=== PATIENT | female | born 1930 | race Two or more races ===

== ENCOUNTER 2017-05-03 09:07 | Inpatient (IN) | payer MEDICARE, MEDICAID ==
[~2017-05-03] VITALS: Ht 157.5 cm; Wt 75.7 kg
[2017-05-03] MEDS ORDERED: SODIUM CHLORIDE 0.9% 1000ML BAG (SEPSIS BOLUS) IV ONE (10:00)
[2017-05-03] MEDS ORDERED: LEVOFLOXACIN 500MG PREMIX 100 ML IV ONE (10:00)
[2017-05-03] MEDS ORDERED: ALBUTEROL (0.083%) 2.5MG/3ML NEB HHN STA (10:06)
[2017-05-03] MEDS ORDERED: IPRATROPIUM BROMIDE (0.02%) 0.5MG/2.5ML NEB HHN STA (10:06)
[2017-05-03] MEDS ORDERED: AMLODIPINE 5MG TABLET PO ONE (10:15)
[2017-05-03 10:25] LABS: CLARITY URINE CLEAR (CLEAR); COLOR URINE YELLOW (YELLOW); GLUCOSE URINE NEGATIVE (NEGATIVE); KETONES URINE NEGATIVE (NEGATIVE); LEUKOCYTE ESTERASE URINE NEGATIVE (NEGATIVE); NITRITE URINE NEGATIVE (NEGATIVE); OCCULT BLOOD URINE NEGATIVE (NEGATIVE); PH URINE 7.5 (4.5-8.0); PROTEIN URINE NEGATIVE (NEGATIVE); SPECIFIC GRAVITY URINE 1.008 (1.005-1.030); UROBILINOGEN URINE 0.2 E.U./dL (0.2-1.0)
[2017-05-03 10:35] LABS: BASOPHILS % 1.1 % (0.0-2.0); EOSINOPHILS % 0.3 % (0.0-5.0); HEMATOCRIT. 40.8 % (36.0-48.0); HEMOGLOBIN. 13.7 g/dL (12.0-16.0); MEAN CORPUSCULAR VOLUME 92.1 fL (81.0-99.0); MEAN PLATELET VOLUME 8.4 fl (7.4-10.4); NEUTROPHILS % 69.6 % (40.0-76.0); PLATELET 161 x1000/uL (130-400); RED BLOOD CELL COUNT 4.43 mill/uL (4.2-5.4); RED CELL DISTRIBUTION WIDTH 15.2 % (11.6-14.6)
[2017-05-03 10:42] LABS: INR 1.2; PROTHROMBIN TIME 12.2 sec
[2017-05-03 10:53] LABS: CARBON DIOXIDE 31 mEq/L (21-32); CHLORIDE 104 mEq/L (98-107); CREATINE KINASE 32 IU/L (26-192); CREATINE KINASE MB FRACTION 0.6 ng/mL (0.5-3.6); TROPONIN I < 0.02 ng/mL (0.00-0.04)
[2017-05-03 15:41] VITALS: BP 140/75
[2017-05-03 15:45] VITALS: BP 140/75
[2017-05-03] MEDS ORDERED: FURO-152 PO (16:02)
[2017-05-03] MEDS ORDERED: PREG75CA PO (16:02)
[2017-05-03] MEDS ORDERED: PREG50CA PO (16:02)
[2017-05-03] MEDS ORDERED: AMLO5TAB4 PO (16:08)
[2017-05-03] MEDS ORDERED: FERR-63 PO (16:08)
[2017-05-03] MEDS ORDERED: VITAMIN C (16:08)
[2017-05-03] MEDS ORDERED: METO-293 PO (16:08)
[2017-05-03] MEDS ORDERED: MONT10TA24 PO (16:08)
[2017-05-03] MEDS ORDERED: LUTIN (16:15)
[2017-05-03] MEDS ORDERED: CRANBERRY (16:15)
[2017-05-03] MEDS ORDERED: BUDE0.5A3 IH (16:15)
[2017-05-03] MEDS ORDERED: METF500T4 PO (16:15)
[2017-05-03] MEDS ORDERED: PERFOROMIST ×2 (16:15→16:56)
[2017-05-03] MEDS ORDERED: BRIM15DR2 EACHEYE (16:15)
[2017-05-03] MEDS ORDERED: [UNRECOGNIZED DRUG - OTHER] (16:19)
[2017-05-03] MEDS ORDERED: MILK OF MAGNESIA (16:19)
[2017-05-03] MEDS ORDERED: DOCUSATE SODIUM 100MG CAPSULE PO PRN (17:30)
[2017-05-03] MEDS ORDERED: ACETAMINOPHEN 650MG/20.3ML UDC GT PRN (17:30)
[2017-05-03] MEDS ORDERED: MAGNESIUM/ALUMINUM HYDROXIDE/SIMETHICONE 30ML UDC PO PRN (17:30)
[2017-05-03] MEDS ORDERED: IPRATROPIUM/ALBUTEROL 0.5-3(2.5)MG/3ML NEB INH SCH (17:30)
[2017-05-03] MEDS ORDERED: ONDANSETRON HCL 4MG/2ML VIAL IV PRN (17:30)
[2017-05-03] MEDS ORDERED: DIPHENHYDRAMINE 50MG/ML VIAL IV PRN (17:30)
[2017-05-03] MEDS ORDERED: ALBUTEROL (0.083%) 2.5MG/3ML NEB HHN PRN (17:47)
[2017-05-03] MEDS ORDERED: DEXTROSE 50% WATER 50ML SYRINGE IV PRN (18:15)
[2017-05-03] MEDS: METHYLPREDNISOLONE SOD SUCC 40 MG/ML VIAL IV SCH (18:29)
[2017-05-03] MEDS: METFORMIN HCL 500MG TABLET PO SCH (18:29)
[2017-05-03 20:00] VITALS: BP 137/69
[2017-05-03] MEDS: ALBUTEROL (0.083%) 2.5MG/3ML NEB HHN SCH (20:47)
[2017-05-03] MEDS: CEFTRIAXONE 1 G PREMIX 50 ML IV SCH (20:51)
[2017-05-03] MEDS: PREGABALIN 25MG CAPSULE PO SCH (21:05)
[2017-05-03] MEDS: GUAIFENESIN 600MG ER TABLET PO SCH (21:06)
[2017-05-03] MEDS: MONTELUKAST SODIUM 10MG TABLET PO SCH (21:06)
[2017-05-03] MEDS: SODIUM CHLORIDE 0.9% INJ 3ML FLUSH IVF SCH (21:07)
[2017-05-03] MEDS: INSULIN LISPRO 100 UNITS/ML SUBCUT SCH (21:16)
[2017-05-03] MEDS: BLOOD SUGAR DIAGNOSTIC STRIP TEST SCH (21:16)
[2017-05-04] VITALS: BP 111/56
[2017-05-04] MEDS: ALBUTEROL (0.083%) 2.5MG/3ML NEB HHN SCH ×7 (00:29→23:53)
[2017-05-04] MEDS: METHYLPREDNISOLONE SOD SUCC 40 MG/ML VIAL IV SCH ×3 (02:28→18:09)
[2017-05-04 04:00] VITALS: BP 111/56
[2017-05-04] MEDS: SODIUM CHLORIDE 0.9% INJ 3ML FLUSH IVF SCH ×3 (05:59→22:07)
[2017-05-04 06:39] LABS: BASOPHILS % 0.2 % (0.0-2.0); HEMATOCRIT. 37.4 % (36.0-48.0); HEMOGLOBIN. 12.5 g/dL (12.0-16.0); MEAN CORPUSCULAR VOLUME 92.7 fL (81.0-99.0); MEAN PLATELET VOLUME 8.4 fl (7.4-10.4); MONOCYTES % 3.1 % (2.0-8.0); NEUTROPHILS % 87.7 % (40.0-76.0); PLATELET 150 x1000/uL (130-400); RED BLOOD CELL COUNT 4.03 mill/uL (4.2-5.4)
[2017-05-04] MEDS: BLOOD SUGAR DIAGNOSTIC STRIP TEST SCH ×4 (06:49→21:29)
[2017-05-04] MEDS: INSULIN LISPRO 100 UNITS/ML SUBCUT SCH ×4 (06:52→21:27)
[2017-05-04 07:21] LABS: BG CARBOXYHEMOGLOBIN 0.5 % (0.5-1.5); BG DEOXYHEMOGLOBIN 7.7 % (0.0-5.0); BG HCO3 ACT 21.7 mmol/L (22.0-26.0); BG METHEMOGLOBIN 0.2 % (0.0-1.5); BG OXYGEN SATURATION 92.2 % (92.0-98.5); BG OXYHEMOGLOBIN 91.6 % (94.0-97.0); BG PCO2 37.8 mmHg (35.0-45.0); BG PH 7.377 (7.350-7.450); BG PO2 68.7 mmHg (75.0-100.0); BG SAMPLE SITE RIGHT BRACHIAL; BG TOTAL HEMOGLOBIN 13.1 g/dL (12.0-18.0); BG VENT MODE ROOM AIR
[2017-05-04 07:24] LABS: CARBON DIOXIDE 25 mEq/L (21-32); CHLORIDE 102 mEq/L (98-107); HDL CHOLESTEROL 83 mg/dL (40-59); LDL CHOLESTEROL 141 mg/dL (5-100); T4 FREE 1.13 ng/dL (0.76-1.46); TROPONIN I < 0.02 ng/mL (0.00-0.04)
[2017-05-04 07:38] LABS: TOTAL IRON BINDING CAPACITY 281 ug/dL (250-450)
[2017-05-04 08:00] VITALS: BP_SYST 114; BP_SYST 127; BP_DIAS 68; BP_DIAS 69
[2017-05-04] MEDS: DOCUSATE SODIUM 100MG CAPSULE PO SCH (09:00)
[2017-05-04] MEDS: AMLODIPINE 5MG TABLET PO SCH (09:17)
[2017-05-04] MEDS: POTASSIUM BICARB/CIT ACID 25 MEQ TABLET.EFF PO SCH ×2 (09:18→18:09)
[2017-05-04] MEDS: PREGABALIN 25MG CAPSULE PO SCH (09:18)
[2017-05-04] MEDS: GUAIFENESIN 600MG ER TABLET PO SCH ×2 (09:18→21:29)
[2017-05-04] MEDS: FUROSEMIDE 20MG TABLET PO SCH (09:18)
[2017-05-04] MEDS: METFORMIN HCL 500MG TABLET PO SCH ×2 (09:18→18:09)
[2017-05-04] MEDS: FLUTICASONE PROPIONATE 50MCG/SPRAY BOTTLE NS SCH (09:19)
[2017-05-04] MEDS: MAGNESIUM HYDROXIDE 400MG/5ML 30ML UDC PO PRN (11:18)
[2017-05-04 12:00] VITALS: BP 127/69
[2017-05-04] MEDS ORDERED: DEXTROSE 50% WATER 50ML SYRINGE IV PRN (15:00)
[2017-05-04 16:00] VITALS: BP 139/63
[2017-05-04 20:00] VITALS: BP 107/58
[2017-05-04] MEDS: CEFTRIAXONE 1 G PREMIX 50 ML IV SCH (21:26)
[2017-05-04] MEDS: MONTELUKAST SODIUM 10MG TABLET PO SCH (21:28)
[2017-05-04] MEDS: INSULIN DETEMIR UD 100 UNITS/ML SYR SUBCUT SCH (21:28)
[2017-05-04] MEDS: BETAXOLOL 0.5% XX SCH (21:28)
[2017-05-04] MEDS: BRIMONIDINE 0.15% XX SCH (21:28)
[2017-05-04] MEDS: PREGABALIN 75MG CAPSULE PO SCH (21:29)
[2017-05-05] VITALS: BP 98/58
[2017-05-05] MEDS: METHYLPREDNISOLONE SOD SUCC 40 MG/ML VIAL IV SCH ×3 (02:12→18:07)
[2017-05-05 04:00] VITALS: BP 110/57
[2017-05-05] MEDS: ALBUTEROL (0.083%) 2.5MG/3ML NEB HHN SCH ×5 (04:00→21:03)
[2017-05-05] MEDS: BLOOD SUGAR DIAGNOSTIC STRIP TEST SCH ×4 (06:53→21:33)
[2017-05-05] MEDS: SODIUM CHLORIDE 0.9% INJ 3ML FLUSH IVF SCH ×3 (06:53→21:35)
[2017-05-05 06:59] LABS: BASOPHILS % 0.1 % (0.0-2.0); HEMATOCRIT. 35.8 % (36.0-48.0); HEMOGLOBIN. 11.9 g/dL (12.0-16.0); LYMPHOCYTES % 8.4 % (20.0-50.0); MEAN CORPUSCULAR HEMOGLOBIN 30.8 pg (28.0-32.0); MEAN CORPUSCULAR VOLUME 92.5 fL (81.0-99.0); MEAN PLATELET VOLUME 8.8 fl (7.4-10.4); MONOCYTES % 5.6 % (2.0-8.0); NEUTROPHILS % 85.9 % (40.0-76.0); PLATELET 152 x1000/uL (130-400); RED BLOOD CELL COUNT 3.87 mill/uL (4.2-5.4); RED CELL DISTRIBUTION WIDTH 15.1 % (11.6-14.6)
[2017-05-05] MEDS: INSULIN LISPRO 100 UNITS/ML SUBCUT SCH ×4 (07:09→21:44)
[2017-05-05 07:23] LABS: CARBON DIOXIDE 27 mEq/L (21-32); CHLORIDE 103 mEq/L (98-107); PHOSPHORUS 3.9 mg/dL (2.5-4.9)
[2017-05-05 08:00] VITALS: BP 105/52
[2017-05-05] MEDS: METFORMIN HCL 500MG TABLET PO SCH ×2 (08:51→18:08)
[2017-05-05] MEDS: FLUTICASONE PROPIONATE 50MCG/SPRAY BOTTLE NS SCH (08:51)
[2017-05-05] MEDS: FUROSEMIDE 20MG TABLET PO SCH (08:52)
[2017-05-05] MEDS: POTASSIUM BICARB/CIT ACID 25 MEQ TABLET.EFF PO SCH (08:52)
[2017-05-05] MEDS: AMLODIPINE 5MG TABLET PO SCH (08:52)
[2017-05-05] MEDS: GUAIFENESIN 600MG ER TABLET PO SCH ×2 (08:52→21:32)
[2017-05-05] MEDS: BETAXOLOL 0.5% XX SCH ×2 (08:53→21:33)
[2017-05-05] MEDS: BRIMONIDINE 0.15% XX SCH ×2 (08:53→21:34)
[2017-05-05] MEDS: DOCUSATE SODIUM 100MG CAPSULE PO SCH (08:59)
[2017-05-05] MEDS: MAGNESIUM HYDROXIDE 400MG/5ML 30ML UDC PO PRN (09:07)
[2017-05-05] MEDS: PREGABALIN 50 MG CAPSULE PO SCH (09:07)
[2017-05-05] MEDS ORDERED: FUROSEMIDE 40MG/4ML VIAL IVP SCH (10:30)
[2017-05-05 12:00] VITALS: BP 112/59
[2017-05-05 16:00] VITALS: BP 127/67
[2017-05-05 20:00] VITALS: BP 140/74
[2017-05-05] MEDS: MONTELUKAST SODIUM 10MG TABLET PO SCH (21:32)
[2017-05-05] MEDS: CEFTRIAXONE 1 G PREMIX 50 ML IV SCH (21:32)
[2017-05-05] MEDS: PREGABALIN 75MG CAPSULE PO SCH (21:32)
[2017-05-05] MEDS: INSULIN DETEMIR UD 100 UNITS/ML SYR SUBCUT SCH (21:45)
[2017-05-06] VITALS: BP 113/64
[2017-05-06] MEDS: ALBUTEROL (0.083%) 2.5MG/3ML NEB HHN SCH ×7 (01:23→23:32)
[2017-05-06 04:00] VITALS: BP 105/51
[2017-05-06] MEDS: SODIUM CHLORIDE 0.9% INJ 3ML FLUSH IVF SCH ×3 (06:06→21:44)
[2017-05-06] MEDS: METHYLPREDNISOLONE SOD SUCC 40 MG/ML VIAL IV SCH ×2 (06:06→18:20)
[2017-05-06] MEDS: BLOOD SUGAR DIAGNOSTIC STRIP TEST SCH ×4 (06:26→20:18)
[2017-05-06] MEDS: INSULIN LISPRO 100 UNITS/ML SUBCUT SCH ×4 (06:48→20:23)
[2017-05-06 08:00] VITALS: BP 131/71
[2017-05-06] MEDS: LACTULOSE 20G/30ML UDC PO SCH ×3 (09:15→21:34)
[2017-05-06] MEDS: AMLODIPINE 5MG TABLET PO SCH (09:37)
[2017-05-06] MEDS: PREGABALIN 50 MG CAPSULE PO SCH (09:38)
[2017-05-06] MEDS: DOCUSATE SODIUM 100MG CAPSULE PO SCH (09:38)
[2017-05-06] MEDS: METFORMIN HCL 500MG TABLET PO SCH ×2 (09:38→18:19)
[2017-05-06] MEDS: FLUTICASONE PROPIONATE 50MCG/SPRAY BOTTLE NS SCH (09:38)
[2017-05-06] MEDS: BRIMONIDINE 0.15% XX SCH (09:39)
[2017-05-06] MEDS: BETAXOLOL 0.5% XX SCH ×2 (09:39→20:26)
[2017-05-06] MEDS: MAGNESIUM HYDROXIDE 400MG/5ML 30ML UDC PO PRN (09:46)
[2017-05-06] MEDS: GUAIFENESIN 600MG ER TABLET PO SCH ×2 (09:46→20:17)
[2017-05-06 11:13] LABS: HEMATOCRIT. 39.4 % (36.0-48.0); HEMOGLOBIN. 12.8 g/dL (12.0-16.0); MEAN CORPUSCULAR HEMOGLOBIN 30.3 pg (28.0-32.0); MEAN CORPUSCULAR VOLUME 93.1 fL (81.0-99.0); MEAN PLATELET VOLUME 8.5 fl (7.4-10.4); PLATELET 165 x1000/uL (130-400); RED BLOOD CELL COUNT 4.23 mill/uL (4.2-5.4); RED CELL DISTRIBUTION WIDTH 15.1 % (11.6-14.6)
[2017-05-06 12:00] VITALS: BP 110/65
[2017-05-06 13:09] LABS: *CREATININE RANDOM URINE 96.5 mg/dL (Not Estab.); MICROALBUMIN/CREATININE RATIO 7.3 mg/g creat (0.0-30.0)
[2017-05-06] MEDS ORDERED: SODIUM CHLORIDE 0.9% 500 ML IV ONE (13:45)
[2017-05-06 16:00] VITALS: BP 120/67
[2017-05-06 18:08] LABS: PLATELET ESTIMATE NORMAL
[2017-05-06 20:00] VITALS: BP 137/71
[2017-05-06] MEDS: MONTELUKAST SODIUM 10MG TABLET PO SCH (20:17)
[2017-05-06] MEDS: PREGABALIN 75MG CAPSULE PO SCH (20:17)
[2017-05-06] MEDS: CEFTRIAXONE 1 G PREMIX 50 ML IV SCH (21:34)
[2017-05-06] MEDS: INSULIN DETEMIR UD 100 UNITS/ML SYR SUBCUT SCH (21:44)
[2017-05-07] VITALS (7 sets, daily range): BP systolic 114–138; BP diastolic 54–76
[2017-05-07] MEDS: ALBUTEROL (0.083%) 2.5MG/3ML NEB HHN SCH ×5 (03:44→21:24)
[2017-05-07] MEDS: BLOOD SUGAR DIAGNOSTIC STRIP TEST SCH ×4 (06:15→20:06)
[2017-05-07] MEDS: LACTULOSE 20G/30ML UDC PO SCH ×3 (06:22→21:37)
[2017-05-07] MEDS: METHYLPREDNISOLONE SOD SUCC 40 MG/ML VIAL IV SCH ×2 (06:22→17:10)
[2017-05-07] MEDS: SODIUM CHLORIDE 0.9% INJ 3ML FLUSH IVF SCH ×3 (06:22→21:37)
[2017-05-07] MEDS: INSULIN LISPRO 100 UNITS/ML SUBCUT SCH ×4 (06:23→20:37)
[2017-05-07] MEDS: PREGABALIN 50 MG CAPSULE PO SCH (08:17)
[2017-05-07] MEDS: METFORMIN HCL 500MG TABLET PO SCH ×2 (08:17→17:11)
[2017-05-07] MEDS: AMLODIPINE 5MG TABLET PO SCH (08:18)
[2017-05-07] MEDS: GUAIFENESIN 600MG ER TABLET PO SCH ×2 (08:18→20:28)
[2017-05-07] MEDS: DOCUSATE SODIUM 100MG CAPSULE PO SCH (08:18)
[2017-05-07] MEDS: FLUTICASONE PROPIONATE 50MCG/SPRAY BOTTLE NS SCH (08:19)
[2017-05-07] MEDS: PREDNISONE 20MG TABLET PO SCH (08:19)
[2017-05-07] MEDS: BETAXOLOL 0.5% XX SCH ×2 (08:19→20:28)
[2017-05-07 10:29] LABS: HEMATOCRIT. 38.5 % (36.0-48.0); HEMOGLOBIN. 12.7 g/dL (12.0-16.0); LYMPHOCYTES % 7.2 % (20.0-50.0); MEAN CORPUSCULAR HEMOGLOBIN 30.6 pg (28.0-32.0); MEAN PLATELET VOLUME 8.6 fl (7.4-10.4); MONOCYTES % 5.6 % (2.0-8.0); NEUTROPHILS % 87.2 % (40.0-76.0); PLATELET 162 x1000/uL (130-400); RED BLOOD CELL COUNT 4.14 mill/uL (4.2-5.4); RED CELL DISTRIBUTION WIDTH 15.2 % (11.6-14.6)
[2017-05-07] MEDS ORDERED: METHYLPREDNISOLONE SOD SUCC 40 MG/ML VIAL IV NR (11:00)
[2017-05-07 11:06] LABS: CARBON DIOXIDE 27 mEq/L (21-32); CHLORIDE 104 mEq/L (98-107)
[2017-05-07] MEDS: CEFTRIAXONE 1 G PREMIX 50 ML IV SCH (20:27)
[2017-05-07] MEDS: THEOPHYLLINE ANHYDROUS 80 MG/15 ML 120ML PO SCH (20:28)
[2017-05-07] MEDS: MONTELUKAST SODIUM 10MG TABLET PO SCH (20:28)
[2017-05-07] MEDS: PREGABALIN 75MG CAPSULE PO SCH (20:28)
[2017-05-07] MEDS: BRIMONIDINE 0.15% XX SCH (20:43)
[2017-05-07] MEDS: INSULIN DETEMIR UD 100 UNITS/ML SYR SUBCUT SCH (21:42)
[2017-05-08] MEDS: ALBUTEROL (0.083%) 2.5MG/3ML NEB HHN SCH ×6 (00:54→20:19)
[2017-05-08 04:30] VITALS: BP 121/59
[2017-05-08] MEDS: BLOOD SUGAR DIAGNOSTIC STRIP TEST SCH ×4 (06:48→21:15)
[2017-05-08] MEDS: METFORMIN HCL 500MG TABLET PO SCH ×2 (06:50→17:40)
[2017-05-08] MEDS: PREDNISONE 20MG TABLET PO SCH (06:50)
[2017-05-08] MEDS: SODIUM CHLORIDE 0.9% INJ 3ML FLUSH IVF SCH ×3 (06:50→21:03)
[2017-05-08] MEDS: METHYLPREDNISOLONE SOD SUCC 40 MG/ML VIAL IV SCH ×2 (06:50→17:59)
[2017-05-08] MEDS: LACTULOSE 20G/30ML UDC PO SCH ×3 (06:50→21:03)
[2017-05-08] MEDS: INSULIN LISPRO 100 UNITS/ML SUBCUT SCH ×4 (06:57→22:01)
[2017-05-08 08:00] VITALS: BP 115/60
[2017-05-08] MEDS: BETAXOLOL 0.5% XX SCH ×2 (08:20→21:00)
[2017-05-08] MEDS: BRIMONIDINE 0.15% XX SCH ×2 (08:20→21:00)
[2017-05-08] MEDS: PREGABALIN 50 MG CAPSULE PO SCH (08:21)
[2017-05-08] MEDS: DOCUSATE SODIUM 100MG CAPSULE PO SCH (08:21)
[2017-05-08] MEDS: AMLODIPINE 5MG TABLET PO SCH (08:21)
[2017-05-08] MEDS: GUAIFENESIN 600MG ER TABLET PO SCH ×2 (08:22→21:00)
[2017-05-08] MEDS: THEOPHYLLINE ANHYDROUS 80 MG/15 ML 120ML PO SCH ×2 (08:22→21:02)
[2017-05-08 10:07] LABS: 25-HYDROXY VITAMIN D3 12 ng/mL (.)
[2017-05-08 12:00] VITALS: BP 124/62
[2017-05-08] MEDS ORDERED: SODIUM CHLORIDE 0.9% 10ML VIAL ONE (12:54)
[2017-05-08] MEDS ORDERED: IOHEXOL-300 100 ML BOTTLE ONE (12:54)
[2017-05-08 16:31] VITALS: BP 124/68
[2017-05-08 20:00] VITALS: BP 134/67
[2017-05-08] MEDS: CEFTRIAXONE 1 G PREMIX 50 ML IV SCH (20:39)
[2017-05-08] MEDS: PREGABALIN 75MG CAPSULE PO SCH (21:01)
[2017-05-08] MEDS: MONTELUKAST SODIUM 10MG TABLET PO SCH (21:01)
[2017-05-08] MEDS: INSULIN DETEMIR UD 100 UNITS/ML SYR SUBCUT SCH (22:01)
[2017-05-09] VITALS: BP 112/46
[2017-05-09] MEDS: ALBUTEROL (0.083%) 2.5MG/3ML NEB HHN SCH ×4 (00:37→12:38)
[2017-05-09 04:00] VITALS: BP 112/58
[2017-05-09] MEDS: BLOOD SUGAR DIAGNOSTIC STRIP TEST SCH ×2 (06:50→11:44)
[2017-05-09] MEDS: LACTULOSE 20G/30ML UDC PO SCH (06:52)
[2017-05-09] MEDS: SODIUM CHLORIDE 0.9% INJ 3ML FLUSH IVF SCH (06:52)
[2017-05-09] MEDS: METHYLPREDNISOLONE SOD SUCC 40 MG/ML VIAL IV SCH (06:52)
[2017-05-09] MEDS: METFORMIN HCL 500MG TABLET PO SCH (06:53)
[2017-05-09] MEDS: INSULIN LISPRO 100 UNITS/ML SUBCUT SCH (06:53)
[2017-05-09 08:00] VITALS: BP 116/70
[2017-05-09] MEDS: GUAIFENESIN 600MG ER TABLET PO SCH (09:01)
[2017-05-09] MEDS: PREGABALIN 50 MG CAPSULE PO SCH (09:01)
[2017-05-09] MEDS: BETAXOLOL 0.5% XX SCH (09:01)
[2017-05-09] MEDS: THEOPHYLLINE ANHYDROUS 80 MG/15 ML 120ML PO SCH (09:01)
[2017-05-09] MEDS: PREDNISONE 20MG TABLET PO SCH (09:01)
[2017-05-09] MEDS: AMLODIPINE 5MG TABLET PO SCH (09:02)
[2017-05-09] MEDS: DOCUSATE SODIUM 100MG CAPSULE PO SCH (09:02)
[2017-05-09 11:55] VITALS: BP 120/69
[2017-05-09 12:00] VITALS: BP 120/69
== END 2017-05-09 12:25 | disposition home or self-care (01) | DRG 291 ==
LOC: ER 10:36 → 8WST 11:32 → EDBEDREQ 11:35 → ENRESERV 14:09 → 8WST 16:18
PROVIDERS: ADMIT Internal Medicine; ATTEND Internal Medicine
DX: I11.0 Hypertensive heart disease with heart failure (principal); J18.9 Pneumonia, unspecified organism; J96.20 Acute and chronic respiratory failure, unspecified whether with hypoxia or hypercapnia; J45.41 Moderate persistent asthma with (acute) exacerbation; E44.1 Mild protein-calorie malnutrition; J44.0 Chronic obstructive pulmonary disease with (acute) lower respiratory infection; J98.11 Atelectasis; K76.6 Portal hypertension; I50.23 Acute on chronic systolic (congestive) heart failure; I48.91 Unspecified atrial fibrillation; J20.9 Acute bronchitis, unspecified; R91.8 Other nonspecific abnormal finding of lung field; I44.7 Left bundle-branch block, unspecified; E11.9 Type 2 diabetes mellitus without complications; E66.9 Obesity, unspecified; E78.5 Hyperlipidemia, unspecified; I25.10 Atherosclerotic heart disease of native coronary artery without angina pectoris; I27.2 Other secondary pulmonary hypertension; I50.9 Heart failure, unspecified; K59.00 Constipation, unspecified; K74.60 Unspecified cirrhosis of liver; K80.20 Calculus of gallbladder without cholecystitis without obstruction; Z79.4 Long term (current) use of insulin; Z68.30 Body mass index [BMI] 30.0-30.9, adult; Z88.8 Allergy status to other drugs, medicaments and biological substances
CPT/HCPCS: 36415; 36600; 71010; 71260; 74000; 76770; 80048; 80053; 80061; 80076; 81003; 82043; 82248; 82306; 82375; 82550; 82553; 82570; 82805; 82962; 83036; 83540; 83550; 83605; 83690; 83735; 83880; 84100; 84439; 84443; 84481; 84484; 84550; 85025; 85610; 85651; 86677; 86850; 86900; 87040; 87086; 93005; 93306; 93880; 93970; 94640; 96365; 96366; 99291; A4216; C1893; J0696; J1815; J1940; J1956; J2920; J7030; J7040; J7512; J7611; Q9967